=== PATIENT | male | born 1950 | race Caucasian/White ===

== ENCOUNTER 2023-10-13 13:40 | Inpatient (IN) | payer OTHER, MEDICAID ==
[~2023-10-13] VITALS: Ht 172.7 cm; Wt 91.3 kg
[2023-10-13 14:45] LABS: Basophils # (auto) 0.1 10 ^3/uL (0-0.2); Basophils % (auto) 0.7 % (0.0-2.0); Eosinophils # (auto) 0 10 ^3/uL (0-0.8); Eosinophils % (auto) 0.1 % (0.0-7.0); Hematocrit 37.7 % (41.0-53.0); Hemoglobin 12.7 g/dL (13.5-17.5); Lymphocytes # (auto) 0.4 10 ^3/uL (0.4-5.4); Lymphocytes % (auto) 3.7 % (10.0-50.0); Mean Corpuscular Hemoglobin 30.5 pg (28.0-32.0); Mean Corpuscular Hgb Conc. 33.7 g/dL (32.0-36.0); Mean Corpuscular Volume 90.5 fL (80.0-100.0); Monocytes # (auto) 0.5 10 ^3/uL (0-1.3); Neutrophils # (auto) 9.2 10 ^3/uL (1.6-8.6); Neutrophils % (auto) 90.5 % (37.0-80.0); Red Blood Cells 4.17 10^6/uL (4.5-5.90); Red Cell Distribution Width 14.8 % (11.8-14.3); White Blood Cell 10.2 10^3/uL (4.4-10.8)
[2023-10-13 15:04] LABS: Alanine Aminotransferase 30 U/L (7-40); Albumin 4.4 g/dL (3.2-4.8); Alkaline Phosphatase 70 U/L (46-116); Anion Gap 7 (5-15); Aspartate Aminotransferase 26 U/L (13-40); BUN/Creatinine Ratio 12.3 (10.0-20.0); Bilirubin, Total 0.6 mg/dL (0.2-1.0); Blood Urea Nitrogen 17 mg/dL (9-23); Calcium 9.7 mg/dL (8.7-10.4); Carbon Dioxide 26 mmol/L (20-30); Chloride 101 mmol/L (98-107); Glucose 113 mg/dL (74-106); Potassium 4.6 mmol/L (3.5-5.1); Sodium 134 mmol/L (136-145); Total Protein 6.2 g/dL (5.7-8.2)
[2023-10-13] MEDS: SODIUM CHLORIDE 0.9% 500 ML IV ONE (15:25)
[2023-10-13] MEDS ORDERED: ACETAMINOPHEN 325 MG TAB PO PRN (16:30)
[2023-10-13] MEDS ORDERED: NITROGLYCERIN 0.4 MG SL TAB SL PRN (16:30)
[2023-10-13] MEDS ORDERED: ONDANSETRON HCL 4 MG/2 ML VIAL IV PRN (16:30)
[2023-10-13] MEDS ORDERED: DOCUSATE SOD 100 MG CAP PO PRN (16:30)
[2023-10-13] MEDS ORDERED: HYDROcodone-ACET 5/325MG TAB PO PRN (16:30)
[2023-10-13] MEDS ORDERED: MORPHINE SULFATE INJ 2 MG/ml SYRG IV PRN (16:30)
[2023-10-13] MEDS: SODIUM CHLORIDE 0.9% 1,000 ML IV SCH (20:04)
[2023-10-13] MEDS: ATORVASTATIN 20 MG TAB PO SCH (22:37)
[2023-10-13] MEDS: FAMOTIDINE (10MG/ML) 2ML VL IV SCH (22:37)
[2023-10-14 00:04] VITALS: BP 148/76; PULSE 68; RESP 16; TEMP 98.5; O2SAT 96
[2023-10-14] MEDS ORDERED: DEUT9TAB PO (00:11)
[2023-10-14] MEDS ORDERED: ASPI81CH59 PO (00:11)
[2023-10-14] MEDS ORDERED: LIFI5DRO2 (00:11)
[2023-10-14] MEDS ORDERED: FLUT1AER17 INH ×2 (00:11→16:58)
[2023-10-14] MEDS ORDERED: FIN5T PO (00:11)
[2023-10-14] MEDS ORDERED: ALBU108A5 INH (00:11)
[2023-10-14] MEDS ORDERED: ATOR40TA52 PO (00:11)
[2023-10-14] MEDS ORDERED: LURA60TA PO (00:11)
[2023-10-14] MEDS ORDERED: QUET50TA27 PO (00:11)
[2023-10-14] MEDS ORDERED: ALLO300T2 PO (00:11)
[2023-10-14] MEDS ORDERED: RISP4TAB53 PO (00:11)
[2023-10-14] MEDS ORDERED: TAMS0.4C36 PO (00:11)
[2023-10-14] MEDS ORDERED: TRAZ-228 PO (00:13)
[2023-10-14] MEDS ORDERED: PSYL0.524 PO (00:15)
[2023-10-14 05:00] VITALS: BP 138/73; PULSE 70; RESP 17; TEMP 98.3; O2SAT 97
[2023-10-14 06:31] LABS: Basophils # (auto) 0.1 10 ^3/uL (0-0.2); Eosinophils # (auto) 0.1 10 ^3/uL (0-0.8); Eosinophils % (auto) 1.6 % (0.0-7.0); Hematocrit 33.3 % (41.0-53.0); Hemoglobin 11.4 g/dL (13.5-17.5); Lymphocytes # (auto) 1.1 10 ^3/uL (0.4-5.4); Lymphocytes % (auto) 13.4 % (10.0-50.0); Mean Corpuscular Hemoglobin 31.1 pg (28.0-32.0); Mean Corpuscular Hgb Conc. 34.3 g/dL (32.0-36.0); Mean Corpuscular Volume 90.8 fL (80.0-100.0); Monocytes # (auto) 0.8 10 ^3/uL (0-1.3); Monocytes % (auto) 9.8 % (0.0-12.0); Neutrophils # (auto) 5.9 10 ^3/uL (1.6-8.6); Neutrophils % (auto) 74.2 % (37.0-80.0); Red Blood Cells 3.66 10^6/uL (4.5-5.90); Red Cell Distribution Width 14.7 % (11.8-14.3)
[2023-10-14 06:47] LABS: Alanine Aminotransferase 23 U/L (7-40); Alkaline Phosphatase 60 U/L (46-116); Anion Gap 6 (5-15); BUN/Creatinine Ratio 10.9 (10.0-20.0); Blood Urea Nitrogen 13 mg/dL (9-23); Calcium 8.9 mg/dL (8.7-10.4); Carbon Dioxide 27 mmol/L (20-30); Chloride 105 mmol/L (98-107); Glucose 107 mg/dL (74-106); Potassium 3.9 mmol/L (3.5-5.1); Sodium 138 mmol/L (136-145); Triglycerides 42 mg/dL (< 150)
[2023-10-14 06:48] LABS: Albumin 3.9 g/dL (3.2-4.8); Aspartate Aminotransferase 20 U/L (13-40); LDL Cholesterol 21 mg/dL (< 100); Magnesium 2.1 mg/dL (1.6-2.6)
[2023-10-14 06:49] LABS: Bilirubin, Total 0.3 mg/dL (0.2-1.0); Cholesterol 80 mg/dL (< 200); HDL Cholesterol 48 mg/dL (40-59); Total Protein 5.9 g/dL (5.7-8.2)
[2023-10-14 07:29] LABS: Urine Bacteria None Seen /hpf (None Seen)
[2023-10-14 07:41] LABS: Urine Blood Negative /uL (Negative); Urine Clarity Clear (Clear); Urine Color Colorless (Yellow); Urine Protein, UAD Negative (Negative); Urine Specific Gravity 1.009 (1.001-1.035); Urine Urobilinogen Normal (Negative); Urine WBC <1 /hpf (0 - 3); Urine pH 6.5 (5.0-9.0)
[2023-10-14 07:55] LABS: Amphetamine Screen, Urine Neg (NEGATIVE); Barbiturate Scree,Urine Neg (NEGATIVE); Benzodiazephine Screen, Urine Neg (NEGATIVE); Cannabinoid Screen, Urine Neg (NEGATIVE); Cocaine Screen, Urine Neg (NEGATIVE); Opiate Scree,Urine Neg (NEGATIVE); Phencyclidine Screen, Urine Neg (NEGATIVE)
[2023-10-14 08:00] VITALS: PULSE 64; PULSE 70; RESP 16; O2SAT 96
[2023-10-14 09:00] VITALS: BP 141/69; PULSE 70; RESP 16; TEMP 98; O2SAT 96
[2023-10-14 12:00] VITALS: BP 130/67; PULSE 65; RESP 18; TEMP 97.9; O2SAT 95
[2023-10-14] MEDS ORDERED: SODIUM CHLORIDE 0.9% 1,000 ML IV ONE (13:15)
[2023-10-14 16:00] VITALS: BP 151/67; PULSE 62; RESP 18; TEMP 97.6; O2SAT 100
[2023-10-14] MEDS ORDERED: PANT40TA2 PO (16:56)
[2023-10-14] MEDS ORDERED: FERR325T20 PO (16:56)
[2023-10-14] MEDS ORDERED: FLUT50SP NAS (16:58)
== END 2023-10-14 20:43 | disposition home health service (06) | DRG 887 ==
LOC: ER 13:40 → EDBD 13:40 → TELE 16:33 → TELE-CENTR 23:29
PROVIDERS: ADMIT Nurse Practitioner Family; ATTEND Internal Medicine
DX: G47.00 Insomnia, unspecified (principal); E87.1 Hypo-osmolality and hyponatremia; N17.9 Acute kidney failure, unspecified; R55 Syncope and collapse; E86.0 Dehydration; K21.9 Gastro-esophageal reflux disease without esophagitis; M10.9 Gout, unspecified; F20.9 Schizophrenia, unspecified; E78.5 Hyperlipidemia, unspecified; Z96.653 Presence of artificial knee joint, bilateral; E66.9 Obesity, unspecified; N40.0 Benign prostatic hyperplasia without lower urinary tract symptoms; Z68.30 Body mass index [BMI] 30.0-30.9, adult
CPT/HCPCS: 36415; 70450; 70551; 80053; 80061; 80307; 81001; 83036; 83735; 84443; 84484; 85025; 93005; 93306; 93886; G0378; J3490